=== PATIENT | female | born 1935 | race African-American/Black ===

== ENCOUNTER 2018-05-09 12:51 | Inpatient (IN) | payer MEDICARE, OTHER ==
[~2018-05-09] VITALS: Ht 157.5 cm; Wt 62.1 kg
[2018-05-09 13:35] VITALS: BP 127/69
[2018-05-09] MEDS ORDERED: Morphine Sulfate 2mg/ml Inj IVP ONE (14:30)
[2018-05-09] MEDS ORDERED: Isovue-370 150ml vial INJ PRN (14:30)
--- NOTE | 2018-05-09 14:31 | Emergency Room Report ---
History of Present Illness General Chief Complaint: Pain Source: Patient (Michael Nance MD) Present Illness HPI Patient is an 82-year-old female presented after increased chest pain. The patient ports have increased left-sided pain which is worse with deep breath. Patient reports having onset of symptoms approximately 1 day prior to arrival. The pain was constant in nature. It is worse with deep breath and movement. She denies recent trauma. Patient had prior history of lung cancer and less the treatment 2004. The patient was treated at [facility]. She denies any fever. She had not been vomiting. She denies any productive cough. She denies any current history of smoking however she been a smoker in the past. (Michael Nance MD) Allergies: Coded Allergies: PENICILLINS (Verified Allergy, Unknown, 05/09/18) Patient History Last Menstrual Period: na Reviewed Nursing Documentation: PMH: Agreed; PSxH: Agreed (Michael Nance MD) Nursing Documentation-PMH Past Medical History: No History, Except For Hx Hypertension: Yes Hx Gastrointestinal Problems: Yes - GERD Hx Neurological Problems: Yes - dizziness, chronic pain (Michael Nance MD) Review of Systems All Other Systems: negative except mentioned in HPI (Michael Nance MD) Physical Exam Vital Signs Date Time Temp Pulse Resp B/P (MAP) Pulse Ox O2 Delivery O2 Flow Rate FiO2 05/09/18 13:35 98.2 61 18 127/69 98 Room Air 98.2 Sp02 EP Interpretation: reviewed, normal General Appearance: normal inspection, well appearing, no apparent distress, alert, GCS 15 Head: atraumatic ENT: normal ENT inspection, hearing grossly normal, normal voice Neck: normal inspection, full range of motion, supple, no bony tend Respiratory: normal inspection, lungs clear, normal breath sounds, no respiratory distress, no retraction, no wheezing Cardiovascular #1: regular rate, rhythm, no edema Gastrointestinal: normal inspection, normal bowel sounds, non tender, soft, no guarding, no hernia Genitourinary: no CVA tenderness Musculoskeletal: normal inspection, back normal, normal range of motion Neurologic: normal inspection, alert, oriented x3, responsive, cellophane tester III-XII nml as tested, speech normal Psychiatric: normal inspection, judgement/insight normal, mood/affect normal Skin: normal inspection, normal color, no rash (Michael Nance MD) Medical Decision Making Diagnostic Impression: Primary Impression: ACS (acute coronary syndrome) ER Course Patient presented for chest pain.Differential diagnosis included but was not limited to acute coronary syndrome, pulmonary embolism, pneumonia, aortic dissection, shingles, pneumothorax, aortic dissection, esophageal rupture, pericarditis. Because of complexity of patient's case laboratory testing and imaging studies were ordered.CT imaging was ordered patient's prior history of cancer. (Michael Nance MD) ER Course Please refer to the initial note for the presentation and history Patient's blood work at this time are appropriate EKG did not show any acute pathology Patient however continued to complain of discomfort CT imaging was obtained no obvious acute pulmonary embolism however there was a nonspecific mass in the right upper lobe Patient given the continued discomfort will be admitted for further care Labs Test 05/09/18 14:20 White Blood Count 5.4 K/UL (4.8-10.8) Red Blood Count 4.51 M/UL (4.20-5.40) Hemoglobin 13.7 G/DL (12.0-16.0) Hematocrit 39.5 % (37.0-47.0) Mean Corpuscular Volume 88 FL (80-99) Mean Corpuscular Hemoglobin 30.3 PG (27.0-31.0) Mean Corpuscular Hemoglobin Concent 34.6 G/DL (32.0-36.0) Red Cell Distribution Width 11.8 % (11.6-14.8) Platelet Count 234 K/UL (150-450) Mean Platelet Volume 7.4 FL (6.5-10.1) Neutrophils (%) (Auto) 57.0 % (45.0-75.0) Lymphocytes (%) (Auto) 31.2 % (20.0-45.0) Monocytes (%) (Auto) 7.9 % (1.0-10.0) Eosinophils (%) (Auto) 1.7 % (0.0-3.0) Basophils (%) (Auto) 2.2 % (0.0-2.0) Prothrombin Time 10.7 SEC (9.30-11.50) Prothromb Time International Ratio 1.0 (0.9-1.1) Activated Partial Thromboplast Time 24 SEC (23-33) Sodium Level 139 MMOL/L (136-145) Potassium Level 3.9 MMOL/L (3.5-5.1) Chloride Level 102 MMOL/L (98-107) Carbon Dioxide Level 33 MMOL/L (21-32) Anion Gap 5 mmol/L (5-15) Blood Urea Nitrogen 15 mg/dL (7-18) Creatinine 0.7 MG/DL (0.55-1.30) Estimat Glomerular Filtration Rate mL/min (>60) Glucose Level 78 MG/DL (74-106) Calcium Level 9.6 MG/DL (8.5-10.1) Total Bilirubin 0.5 MG/DL (0.2-1.0) Aspartate Amino Transf (AST/SGOT) 21 U/L (15-37) Alanine Aminotransferase (ALT/SGPT) 13 U/L (12-78) Alkaline Phosphatase 72 U/L (46-116) Total Creatine Kinase 91 U/L (26-308) Creatine Kinase MB 0.5 NG/ML (0.0-3.6) Creatine Kinase MB Relative Index 0.5 Troponin I 0.000 ng/mL (0.000-0.056) Pro-B-Type Natriuretic Peptide 133 pg/mL (0-125) Total Protein 8.5 G/DL (6.4-8.2) Albumin 3.5 G/DL (3.4-5.0) Globulin 5.0 g/dL Albumin/Globulin Ratio 0.7 (1.0-2.7) (Jose Negro DO) EKG Diagnostic Results Rate: normal - 57 Rhythm: NSR ST Segments: no acute changes (Michael Nance MD) Rhythm Strip Diag. Results EP Interpretation: yes Rhythm: NSR, no PVC's, no ectopy (Michael Nance MD) EP Interpretation: yes Rate: 68 Rhythm: NSR, no PVC's, no ectopy (Jose Negro DO) CT/MRI/US Diagnostic Results CT/MRI/US Diagnostic Results : Impression CT chest no PE, right upper lobe mass (Jose Negro DO) Last Vital Signs Date Time Temp Pulse Resp B/P (MAP) Pulse Ox O2 Delivery O2 Flow Rate FiO2 05/09/18 13:35 97.8 67 18 127/69 98 Room Air 97.8 Status: unchanged (Michael Nance MD) Status: improved (Jose Negro DO) Disposition: ADMITTED INPATIENT Condition: Serious Referrals: NON PHYSICIAN (PCP) Michael Nance MD May 09, 2018 14:31 Jose Negro DO May 09, 2018 18:37
[2018-05-09 15:41] LABS: BASOPHILS % (AUTO) 2.2 % (0.0-2.0); EOSINOPHILS % (AUTO) 1.7 % (0.0-3.0); HEMATOCRIT 39.5 % (37.0-47.0); HEMOGLOBIN 13.7 G/DL (12.0-16.0); LYMPHOCYTES % (AUTO) 31.2 % (20.0-45.0); MEAN CORPUSCULAR VOLUME 88 FL (80-99); MONOCYTES % (AUTO) 7.9 % (1.0-10.0); PLATELET COUNT 234 K/UL (150-450); RED BLOOD COUNT 4.51 M/UL (4.20-5.40); RED CELL DISTRIBUTION WIDTH 11.8 % (11.6-14.8); WHITE BLOOD COUNT 5.4 K/UL (4.8-10.8)
[2018-05-09 15:48] LABS: ANION GAP 5 mmol/L (5-15); BLOOD UREA NITROGEN 15 mg/dL (7-18); CALCIUM 9.6 MG/DL (8.5-10.1); CARBON DIOXIDE 33 MMOL/L (21-32); CHLORIDE 102 MMOL/L (98-107); CREATININE 0.7 MG/DL (0.55-1.30); POTASSIUM 3.9 MMOL/L (3.5-5.1); SODIUM 139 MMOL/L (136-145)
[2018-05-09 15:52] VITALS: BP 142/60
[2018-05-09 16:04] LABS: ALANINE AMINOTRANSFERASE 13 U/L (12-78); ALBUMIN 3.5 G/DL (3.4-5.0); ALBUMIN/GLOBULIN RATIO 0.7 (1.0-2.7); ALKALINE PHOSPHATASE 72 U/L (46-116); ASPARTATE AMINO TRANSFERASE 21 U/L (15-37); BILIRUBIN,TOTAL 0.5 MG/DL (0.2-1.0); CKMB 0.5 NG/ML (0.0-3.6); CREATINE KINASE 91 U/L (26-308)
[2018-05-09] MEDS ORDERED: ZANTAC150 MG ORAL (17:25)
[2018-05-09] MEDS ORDERED: HYDROCHLOROTHIA25 MG ORAL (17:25)
[2018-05-09] MEDS ORDERED: METOPROLOL SUC100 MG ORAL (17:25)
[2018-05-09] MEDS ORDERED: OMEPRAZOLE20 M2 ORAL (17:25)
[2018-05-09] MEDS ORDERED: MECLIZINE HCL25 MG ORAL (17:25)
[2018-05-09] MEDS ORDERED: PYRIDOXINE HCL100 MG PO (17:25)
[2018-05-09] MEDS ORDERED: AMLODIPINE BESYL5 MG ORAL (17:25)
[2018-05-09] MEDS ORDERED: GABAPENTIN100 MG ORAL (17:25)
[2018-05-09] MEDS ORDERED: NAPROXEN500 M2 ORAL (17:25)
[2018-05-09] MEDS ORDERED: KLOR-CON M2020 MEQ ORAL (17:25)
[2018-05-09 17:43] VITALS: BP 150/63
--- NOTE | 2018-05-09 17:49 | Consultation ---
Consult Note Consult Note DICT # [id number] Richy Liu MD May 09, 2018 17:49
[2018-05-09] MEDS ORDERED: Nitroglycerin Subl 0.4mg tab SL PRN (18:45)
[2018-05-09] MEDS ORDERED: Morphine Sulfate 2mg/ml Inj IVP PRN (18:45)
[2018-05-09 20:00] VITALS: BP 120/72
--- NOTE | 2018-05-09 20:37 | History and Physical ---
History of Present Illness General Date patient seen: May 09, 2018 Time patient seen: 22:35 Reason for Hospitalization: Pain Present Illness HPI 82 yo woman presented to ED with increased chest pain. She reports increased left-sided pain over the last day which is worse with deep breathing. The pain was constant in nature. It is worse with deep breath and movement. She denies recent trauma. Patient had prior history of lung cancer and less the treatment 2004. The patient was treated at [facility]. She denies any fever. She had not been vomiting. She denies any productive cough. She denies any current history of smoking however she been a smoker in the past. in the ED patient got a CT scan which was negative for PE PMHX; Lung cancer, HTN FHx: Reviewed; not pertinent for this encounter SHx: Previous tobacco No EtOH Allergies: Coded Allergies: PENICILLINS (Verified Allergy, Unknown, 05/09/18) Medication History Scheduled Amlodipine Besylate* (Amlodipine Besylate*), 5 MG ORAL DAILY, (Reported) Gabapentin* (Gabapentin*), 100 MG ORAL THREE TIMES A DAY, (Reported) Hydrochlorothiazide* (Hydrochlorothiazide*), 25 MG ORAL DAILY, (Reported) Metoprolol Succinate* (Metoprolol Succinate*), 100 MG ORAL DAILY, (Reported) Omeprazole (Omeprazole), 20 MG ORAL DAILY, (Reported) Pyridoxine Hcl (Pyridoxine Hcl), 100 MG PO DAILY, (Reported) Scheduled PRN Meclizine Hcl* (Meclizine*), 25 MG ORAL THREE TIMES A DAY PRN for for dizziness, (Reported) Naproxen* (Naproxen*), 500 MG ORAL TWICE A WEEK PRN for For Pain, (Reported) Ranitidine Hcl* (Zantac*), 150 MG ORAL TWICE A DAY PRN for GAS, (Reported) Discontinued Medications Potassium Chloride (Klor-Con M20), 20 MEQ ORAL DAILY, (Reported) Discontinued Reason: Therapy completed Patient History Limited by: age History Provided By: Patient, Medical Record, EMS Healthcare decision maker Resuscitation status Advanced Directive on File Review of Systems Constitutional: Reports: malaise, weakness Eye: Reports: no symptoms ENT: Reports: no symptoms Respiratory: Reports: no symptoms Cardiovascular: Reports: chest pain Gastrointestinal: Reports: no symptoms Genitourinary: Reports: no symptoms Musculoskeletal: Reports: no symptoms Skin: Reports: no symptoms Psychiatric: Reports: no symptoms Neurological: Reports: no symptoms Endocrine: Reports: no symptoms All Other Systems: negative except mentioned in HPI Physical Exam General Appearance: mild distress, thin Lines, tubes and drains: peripheral HEENT: normocephalic, atraumatic Neck: non-tender, supple Respiratory/Chest: chest wall non-tender, decreased breath sounds Cardiovascular/Chest: normal peripheral pulses, normal rate, regular rhythm Abdomen: normal bowel sounds, non tender, soft Extremities: normal range of motion Skin Exam: normal pigmentation 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 Lymphatic: anterior cervical Musculoskeletal: atrophy Last 24 Hour Vital Signs Date Time Temp Pulse Resp B/P (MAP) Pulse Ox O2 Delivery O2 Flow Rate FiO2 05/09/18 18:06 98.5 58 18 150/63 100 Room Air 98.5 05/09/18 17:43 98.5 58 18 150/63 100 Room Air 98.5 05/09/18 16:14 98.5 05/09/18 15:52 98.7 56 19 142/60 100 Room Air 98.7 05/09/18 15:44 97.8 05/09/18 13:35 97.8 67 18 127/69 98 Room Air 97.8 05/09/18 13:35 98.2 61 18 127/69 98 Room Air 98.2 Laboratory Tests Test 05/09/18 14:20 05/09/18 14:30 White Blood Count 5.4 K/UL (4.8-10.8) Red Blood Count 4.51 M/UL (4.20-5.40) Hemoglobin 13.7 G/DL (12.0-16.0) Hematocrit 39.5 % (37.0-47.0) Mean Corpuscular Volume 88 FL (80-99) Mean Corpuscular Hemoglobin 30.3 PG (27.0-31.0) Mean Corpuscular Hemoglobin Concent 34.6 G/DL (32.0-36.0) Red Cell Distribution Width 11.8 % (11.6-14.8) Platelet Count 234 K/UL (150-450) Mean Platelet Volume 7.4 FL (6.5-10.1) Neutrophils (%) (Auto) 57.0 % (45.0-75.0) Lymphocytes (%) (Auto) 31.2 % (20.0-45.0) Monocytes (%) (Auto) 7.9 % (1.0-10.0) Eosinophils (%) (Auto) 1.7 % (0.0-3.0) Basophils (%) (Auto) 2.2 % (0.0-2.0) H Prothrombin Time 10.7 SEC (9.30-11.50) Prothromb Time International Ratio 1.0 (0.9-1.1) Activated Partial Thromboplast Time 24 SEC (23-33) Sodium Level 139 MMOL/L (136-145) Potassium Level 3.9 MMOL/L (3.5-5.1) Chloride Level 102 MMOL/L (98-107) Carbon Dioxide Level 33 MMOL/L (21-32) H Anion Gap 5 mmol/L (5-15) Blood Urea Nitrogen 15 mg/dL (7-18) Creatinine 0.7 MG/DL (0.55-1.30) Estimat Glomerular Filtration Rate mL/min (>60) Glucose Level 78 MG/DL (74-106) Calcium Level 9.6 MG/DL (8.5-10.1) Total Bilirubin 0.5 MG/DL (0.2-1.0) Aspartate Amino Transf (AST/SGOT) 21 U/L (15-37) Alanine Aminotransferase (ALT/SGPT) 13 U/L (12-78) Alkaline Phosphatase 72 U/L (46-116) Total Creatine Kinase 91 U/L (26-308) Creatine Kinase MB 0.5 NG/ML (0.0-3.6) Creatine Kinase MB Relative Index 0.5 Troponin I 0.000 ng/mL (0.000-0.056) Pro-B-Type Natriuretic Peptide 133 pg/mL (0-125) H Total Protein 8.5 G/DL (6.4-8.2) H Albumin 3.5 G/DL (3.4-5.0) Globulin 5.0 g/dL Albumin/Globulin Ratio 0.7 (1.0-2.7) L Hemoglobin A1c 5.9 % (4.3-6.0) Thyroid Stimulating Hormone (TSH) 0.773 uiU/mL (0.358-3.740) Height (Feet): 5 Height (Inches): 2.00 Weight (Pounds): 137 Medications Current Medications Medications (Trade) Dose Ordered Sig/Jayde Route PRN Reason Start Time Stop Time Status Last Admin Dose Admin Acetaminophen (Tylenol) 650 mg Q4H PRN ORAL Mild Pain/Temp > 100.5 05/09/18 18:45 06/08/18 18:44 Acetaminophen/ Hydrocodone Bitart ([place] 5/325) 1 tab Q4H PRN ORAL Moderate Pain (Pain Scale 4-6) 05/09/18 18:45 05/16/18 18:44 Aspirin (ASA) 81 mg DAILY ORAL 05/10/18 09:00 06/09/18 08:59 Atorvastatin Calcium (Lipitor) 20 mg BEDTIME ORAL 05/09/18 21:00 06/08/18 20:59 Diphenhydramine HCl (Benadryl) 25 mg Q4H PRN ORAL Itching 05/09/18 18:45 06/08/18 18:44 Heparin Sodium (Porcine) (Heparin 5000 units/ml) 5,000 units EVERY 12 HOURS SUBQ 05/09/18 21:00 06/08/18 20:59 Ibuprofen (Advil) 400 mg Q6H PRN ORAL For Pain 05/09/18 18:45 06/08/18 18:44 Iopamidol (Isovue-370 150ml) 150 ml NOW PRN INJ Radiology Procedure 05/09/18 14:30 05/11/18 14:20 Morphine Sulfate (Morphine Sulfate) 1 mg Q4H PRN IVP For Pain 05/09/18 18:45 05/16/18 18:44 Nitroglycerin (Ntg) 0.4 mg Q5M PRN SL Prn Chest Pain 05/09/18 18:45 06/08/18 18:44 Ondansetron HCl (Zofran) 4 mg Q4H PRN IVP Nausea & Vomiting 05/09/18 18:45 06/08/18 18:44 Assessment/Plan Status: not improved Status Narrative 82 yo woman with h/o lung cancer s/p treatment with chest pain Assessment/Plan #Chest pain, atypical -Admit to telemetry -Serial EKG's/troponins -Cardiology consult -check TTE #HTN -uncontrolled -continue home meds -add Hydralazine as needed #Lung cancer -s/p treatment; in remission -nodule/mass on preliminary read of CT -Pulmonary consult -f/u official read CT DVT Prophylaxis: SCD's Code Status: Full Hospital Classification declaration: Based on this initial evaluation and depending on the patient's clinical course I anticipate that this patient will require hospitalization for at least 2-3 days Disposition: Once the patient is stable to leave the hospital I anticipate the patient will likely be discharged to the following environment: SNF vs home with HH I spent 70 minutes on this patients care and 36 minutes was dedicated to counseling and care coordination Time of note may not reflect time of encounter Torres Newberry MD May 09, 2018 20:28
[2018-05-09] MEDS: Atorvastatin 20mg tab ORAL SCH (21:00)
[2018-05-09] MEDS: Heparin 5000 units/ml inj SUBQ SCH (21:01)
[2018-05-09] MEDS: Norco 5mg/325mg tab ORAL PRN (22:03)
[2018-05-10] VITALS: BP 111/61
--- NOTE | 2018-05-10 00:45 | Consultation ---
DATE OF CONSULTATION: 05/09/2018 PULMONARY CONSULTATION CONSULTING PHYSICIAN: Richy Liu M.D. REFERRING PHYSICIAN: Carmen Interiano M.D. REASON FOR CONSULTATION: Chest pain, shortness of breath, and history of lung cancer. HISTORY OF PRESENT ILLNESS: The patient is an 82-year-old former smoker with a history of non-small cell lung cancer, status post lobe resection (she is unsure which lobe) via thoracotomy in 2004, as well as hypertension, presenting with 1 day of left-sided posterior chest pain. The pain is sharp, worse with activity with a maximal intensity of 4/10. No radiation. No numbness or tingling. She was afebrile with stable vital signs upon presentation to the emergency department and had a CTA done to rule out PE, which was negative per report, but the official CT is not available for my review. Per the ER attendings, verbal report was negative. The pain is nonexertional. No shortness of breath. No dyspnea. No cough, wheezing, or hemoptysis. No weight loss. It is worse with touch and movement. She denies any recent trauma or injury. Denies any recent increased strenuous activity. Her last negative stress echocardiogram was 1 year ago per the patient and she states it was normal. PAST MEDICAL HISTORY: 1. Hypertension. 2. Non-small cell lung cancer, status post lobe resection and 6 months of chemotherapy in 2004, she is unsure of which lobe it was or the final pathology. PAST SURGICAL HISTORY: Thoracotomy. MEDICATIONS: Onzyi-lj-uzdfkravz medications reviewed. Current medications reviewed. ALLERGIES: Penicillin. SOCIAL HISTORY: Prior tobacco use, quit in 2004. No drug or alcohol. FAMILY HISTORY: Noncontributory. REVIEW OF SYSTEMS: Negative other than history of present illness. PHYSICAL EXAMINATION: VITAL SIGNS: Temperature 98.2, pulse 61, blood pressure 127/69, respiratory rate 18, and saturating 98% on room air. GENERAL: This is a well-developed, well-nourished female in no acute distress. Awake, alert, and oriented x3. HEENT: Normocephalic and atraumatic. Oropharynx with moist mucous membranes. NECK: Supple without lymphadenopathy or jugular venous distention. CHEST: Clear to auscultation bilaterally. Tenderness along the right paravertebral muscles with some spasm. No point tenderness or deformity. No effusion or edema. HEART: Regular rate and rhythm. ABDOMEN: Soft, nontender, and nondistended. EXTREMITIES: No cyanosis, clubbing, or edema. ANCILLARY DATA: White count 5.4, hemoglobin 13.7, and platelet count 234,000. INR 1. Sodium 139, potassium 3.9, chloride 102, bicarb 33, BUN 15, creatinine 0.7, glucose 78, and calcium 9.6. Total bilirubin 0.5. AST 21, ALT 13, and alkaline phosphatase 72. CK 91. Troponin 0.000. ProBNP 133. Total protein 8.5. Albumin 3.5. Globulin 5. IMAGING: Chest x-ray unavailable for my review, but CT angio done and per report, negative for PE. I have to review the final images myself. ASSESSMENT: The patient is an 82-year-old female, former smoker with a history of lung cancer, status post lobe resection in 2004 and 6 months of chemotherapy, hypertension, presenting with atypical chest pain consistent with likely musculoskeletal origin or spasm. She had one negative troponin and has been ruled out for PE. She will be admitted to rule out ACS. I am awaiting the final CT report for further comments. PROBLEM LIST: 1. Atypical chest pain status post negative troponin and a CT angio without evidence of PE in the ER. 2. History of lung cancer, presumably non-small cell lung cancer, status post resection via thoracotomy, lobe unknown, and 6 months of chemotherapy in 2004, presumed to be in clinical remission. 3. Hypertension. 4. Former smoker. TREATMENT PLAN: 1. Admit to telemetry. 2. Rule out ACS with serial EKG and troponin. 3. Await final CT chest. 4. P.r.n. nitroglycerin. 5. Aspirin, statin. 6. Follow up lipids in a.m., follow up hemoglobin A1c. 7. Cardiology consultation pending. 8. P.r.n. NSAIDs. 9. Physical therapy. 10. DVT prophylaxis with heparin subcutaneous. 11. Continue to encourage abstinence from tobacco use. Dr. Interiano, thank you for allowing me to assist in the care of your patient. If I may be of any assistance in the future, please do not hesitate to ask. Richy Liu M.D. DR: JARRETT JOB#: [id number] CC:
[2018-05-10 03:33] LABS: BASOPHILS % (AUTO) 3.1 % (0.0-2.0); EOSINOPHILS % (AUTO) 2.8 % (0.0-3.0); HEMATOCRIT 40.9 % (37.0-47.0); HEMOGLOBIN 13.5 G/DL (12.0-16.0); LYMPHOCYTES % (AUTO) 28.6 % (20.0-45.0); MEAN CORPUSCULAR VOLUME 86 FL (80-99); MONOCYTES % (AUTO) 10.6 % (1.0-10.0); NEUTROPHILS % (AUTO) 54.9 % (45.0-75.0); PLATELET COUNT 233 K/UL (150-450); RED BLOOD COUNT 4.75 M/UL (4.20-5.40); RED CELL DISTRIBUTION WIDTH 11.5 % (11.6-14.8); WHITE BLOOD COUNT 4.8 K/UL (4.8-10.8)
[2018-05-10 03:37] LABS: ANION GAP 3 mmol/L (5-15); BLOOD UREA NITROGEN 14 mg/dL (7-18); CALCIUM 9.4 MG/DL (8.5-10.1); CARBON DIOXIDE 32 MMOL/L (21-32); CHLORIDE 103 MMOL/L (98-107); CREATININE 0.7 MG/DL (0.55-1.30); POTASSIUM 3.1 MMOL/L (3.5-5.1); SODIUM 138 MMOL/L (136-145)
[2018-05-10 03:48] LABS: CHOLESTEROL 181 MG/DL (< 200); HDL CHOLESTEROL 53 MG/DL (40-60); TRIGLYCERIDES 100 MG/DL (30-150)
[2018-05-10 04:00] VITALS: BP 109/58
[2018-05-10 08:00] VITALS: BP 100/55
--- NOTE | 2018-05-10 08:59 | Pulmonology Progress Note ---
Assessment/Plan Assessment/Plan ASSESSMENT: The patient is an 83-year-old male with a [facility] resident with a history of chronic obstructive pulmonary disease, congestive heart failure, chronic kidney disease, dementia, prior cerebrovascular accident, and chronic atrial fibrillation, presenting with shortness of breath likely secondary to decompensated heart failure. He is also on Zosyn for possible aspiration and healthcare-associated pneumonia. PROBLEM LIST: 1. Acute hypoxemic respiratory failure likely secondary to decompensated heart failure. 2. Bibasilar opacities, likely edema, possible aspiration. 3. Chronic obstructive pulmonary disease. 4. Congestive heart failure with acute decompensated heart failure. 5. Chronic atrial fibrillation. 6. Dementia. 7. Prior cerebrovascular accident. 8. Chronic kidney disease. 9. 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 TREATMENT PLAN: 1. Optimize pulmonary hygiene/mobilize as tolerated. 2. Titrate on FiO2 to keep saturations greater than 90%. 3. Pyved-jcu-tznym and p.r.n. DuoNebs. 4. Continue b.i.d. budesonide. 5. Continue Zosyn per ID. 6. Monitor volumes and renal function, continue diuresis as tolerated. 7. Aspiration precautions. 8. Swallow evaluation. 9. DVT PROPHYLAXIS: The patient is on anticoagulation. 10. The patient is Full Code, continue to discuss goals of care. Subjective Allergies: Coded Allergies: PENICILLINS (Verified Allergy, Unknown, 05/09/18) Subjective AFVSS x SB No SOB, no CP, no N, no V, no SOB Objective Last 24 Hour Vital Signs Date Time Temp Pulse Resp B/P (MAP) Pulse Ox O2 Delivery O2 Flow Rate FiO2 05/10/18 04:05 53 05/10/18 04:00 98.9 52 18 109/58 (75) 95 98.9 05/10/18 00:00 98.4 56 18 111/61 (78) 95 98.4 05/09/18 23:34 56 05/09/18 21:33 Room Air 05/09/18 20:00 97.2 59 18 120/72 (88) 99 97.2 05/09/18 19:06 55 05/09/18 18:06 98.5 58 18 150/63 100 Room Air 98.5 05/09/18 17:43 98.5 58 18 150/63 100 Room Air 98.5 9/9/18 16:14 98.5 05/09/18 15:52 98.7 56 19 142/60 100 Room Air 98.7 05/09/18 15:44 97.8 05/09/18 13:35 97.8 67 18 127/69 98 Room Air 97.8 05/09/18 13:35 98.2 61 18 127/69 98 Room Air 98.2 Intake and Output 05/09/18 05/10/18 19:00 07:00 Intake Total 240 ml Output Total 0 ml Balance 0 ml 240 ml Intake Oral 240 ml Output Urine Total 0 ml # Voids 4 General Appearance: WD/WN, no acute distress HEENT: normocephalic, atraumatic, anicteric, mucous membranes moist Respiratory/Chest: chest wall non-tender, lungs clear, normal breath sounds, no respiratory distress Cardiovascular: normal peripheral pulses, regular rhythm, bradycardia Abdomen: normal bowel sounds, soft, non tender, no organomegaly, non distended , no mass Extremities: no cyanosis, no clubbing, no edema Laboratory Tests 05/09/18 14:20: White Blood Count 5.4, Red Blood Count 4.51, Hemoglobin 13.7, Hematocrit 39.5, Mean Corpuscular Volume 88, Mean Corpuscular Hemoglobin 30.3, Mean Corpuscular Hemoglobin Concent 34.6, Red Cell Distribution Width 11.8, Platelet Count 234, Mean Platelet Volume 7.4, Neutrophils (%) (Auto) 57.0, Lymphocytes (%) (Auto) 31.2, Monocytes (%) (Auto) 7.9, Eosinophils (%) (Auto) 1.7, Basophils (%) (Auto ) 2.2H, Prothrombin Time 10.7, Prothromb Time International Ratio 1.0, Activated Partial Thromboplast Time 24, Sodium Level 139, Potassium Level 3.9, Chloride Level 102, Carbon Dioxide Level 33H, Anion Gap 5, Blood Urea Nitrogen 15, Creatinine 0.7, Estimat Glomerular Filtration Rate , Glucose Level 78, Calcium Level 9.6, Total Bilirubin 0.5, Aspartate Amino Transf (AST/SGOT) 21, Alanine Aminotransferase (ALT/SGPT) 13, Alkaline Phosphatase 72, Total Creatine Kinase 91, Creatine Kinase MB 0.5, Creatine Kinase MB Relative Index 0.5, Troponin I 0.000, Pro-B-Type Natriuretic Peptide 133H, Total Protein 8.5H, Albumin 3.5, Globulin 5.0, Albumin/Globulin Ratio 0.7L 05/09/18 14:30: Hemoglobin A1c 5.9, Thyroid Stimulating Hormone (TSH) 0.773 05/09/18 21:55: Troponin I 0.000, D-Dimer 1.35H 05/10/18 03:15: White Blood Count 4.8, Red Blood Count 4.75, Hemoglobin 13.5, Hematocrit 40.9, Mean Corpuscular Volume 86, Mean Corpuscular Hemoglobin 28.4, Mean Corpuscular Hemoglobin Concent 33.0, Red Cell Distribution Width 11.5L, Platelet Count 233, Mean Platelet Volume 7.1, Neutrophils (%) (Auto) 54.9, Lymphocytes (%) (Auto) 28.6, Monocytes (%) (Auto) 10.6H, Eosinophils (%) (Auto) 2.8, Basophils (%) ( Auto) 3.1H, Sodium Level 138, Potassium Level 3.1L, Chloride Level 103, Carbon Dioxide Level 32, Anion Gap 3L, Blood Urea Nitrogen 14, Creatinine 0.7, Estimat Glomerular Filtration Rate , Glucose Level 99, Calcium Level 9.4, Troponin I 0.000, Pro-B-Type Natriuretic Peptide 152H, Triglycerides Level 100, Cholesterol Level 181, LDL Cholesterol 106H, HDL Cholesterol 53, Cholesterol/ HDL Ratio 3.4 Current Medications Medications (Trade) Dose Ordered Sig/Jayde Route PRN Reason Start Time Stop Time Status Last Admin Dose Admin Acetaminophen (Tylenol) 650 mg Q4H PRN ORAL Mild Pain/Temp > 100.5 05/09/18 18:45 06/08/18 18:44 Acetaminophen/ Hydrocodone Bitart ([place] 5/325) 1 tab Q4H PRN ORAL Moderate Pain (Pain Scale 4-6) 05/09/18 18:45 05/16/18 18:44 05/09/18 22:03 Aspirin (ASA) 81 mg DAILY ORAL 05/10/18 09:00 06/09/18 08:59 Atorvastatin Calcium (Lipitor) 20 mg BEDTIME ORAL 05/09/18 21:00 06/08/18 20:59 05/09/18 21:00 Diphenhydramine HCl (Benadryl) 25 mg Q4H PRN ORAL Itching 05/09/18 18:45 06/08/18 18:44 Heparin Sodium (Porcine) (Heparin 5000 units/ml) 5,000 units EVERY 12 HOURS SUBQ 05/09/18 21:00 06/08/18 20:59 05/09/18 21:01 Ibuprofen (Advil) 400 mg Q6H PRN ORAL For Pain 05/09/18 18:45 06/08/18 18:44 Iopamidol (Isovue-370 150ml) 150 ml NOW PRN INJ Radiology Procedure 05/09/18 14:30 05/11/18 14:20 Morphine Sulfate (Morphine Sulfate) 1 mg Q4H PRN IVP For Pain 05/09/18 18:45 05/16/18 18:44 Nitroglycerin (Ntg) 0.4 mg Q5M PRN SL Prn Chest Pain 05/09/18 18:45 06/08/18 18:44 Ondansetron HCl (Zofran) 4 mg Q4H PRN IVP Nausea & Vomiting 05/09/18 18:45 06/08/18 18:44 05/10/18 08:05 Potassium Chloride (K-Dur) 40 meq ONCE ORAL 05/10/18 08:43 05/10/18 09:43 Richy Liu MD May 10, 2018 08:59
--- NOTE | 2018-05-10 09:03 | Pulmonology Progress Note ---
Assessment/Plan Assessment/Plan ASSESSMENT: The patient is an 82-year-old female, former smoker with a history of lung cancer, status post lobe resection in 2004 and 6 months of chemotherapy, hypertension, presenting with atypical chest pain consistent with likely musculoskeletal origin or spasm. She had one negative troponin and has been ruled out for PE. She will be admitted to rule out ACS. I am awaiting the final CT report for further comments. PROBLEM LIST: 1. Atypical chest pain status post negative troponin and a CT angio without evidence of PE in the ER. 2. History of lung cancer, presumably non-small cell lung cancer, status post resection via thoracotomy, lobe unknown, and 6 months of chemotherapy in 2004, presumed to be in clinical remission. 3. Hypertension. 4. Former smoker. TREATMENT PLAN: 1. Continue tele 2. F/U final CT chest 3. Cardiology evaluation 4. P.r.n. nitroglycerin. 5. Aspirin, statin. 6. TTE 7. P.r.n. NSAIDs. 8. Physical therapy. 9. DVT prophylaxis with heparin subcutaneous. 10. Continue to encourage abstinence from tobacco use. Subjective Allergies: Coded Allergies: PENICILLINS (Verified Allergy, Unknown, 05/09/18) Subjective AFVSS x SB No SOB, no CP, no N, no V, no SOB Objective Last 24 Hour Vital Signs Date Time Temp Pulse Resp B/P (MAP) Pulse Ox O2 Delivery O2 Flow Rate FiO2 05/10/18 04:05 53 05/10/18 04:00 98.9 52 18 109/58 (75) 95 98.9 05/10/18 00:00 98.4 56 18 111/61 (78) 95 98.4 05/09/18 23:34 56 05/09/18 21:33 Room Air 05/09/18 20:00 97.2 59 18 120/72 (88) 99 97.2 05/09/18 19:06 55 05/09/18 18:06 98.5 58 18 150/63 100 Room Air 98.5 05/09/18 17:43 98.5 58 18 150/63 100 Room Air 98.5 05/09/18 16:14 98.5 05/09/18 15:52 98.7 56 19 142/60 100 Room Air 98.7 05/09/18 15:44 97.8 05/09/18 13:35 97.8 67 18 127/69 98 Room Air 97.8 05/09/18 13:35 98.2 61 18 127/69 98 Room Air 98.2 Intake and Output 05/09/18 05/10/18 19:00 07:00 Intake Total 240 ml Output Total 0 ml Balance 0 ml 240 ml Intake Oral 240 ml Output Urine Total 0 ml # Voids 4 Laboratory Tests 05/09/18 14:20: White Blood Count 5.4, Red Blood Count 4.51, Hemoglobin 13.7, Hematocrit 39.5, Mean Corpuscular Volume 88, Mean Corpuscular Hemoglobin 30.3, Mean Corpuscular Hemoglobin Concent 34.6, Red Cell Distribution Width 11.8, Platelet Count 234, Mean Platelet Volume 7.4, Neutrophils (%) (Auto) 57.0, Lymphocytes (%) (Auto) 31.2, Monocytes (%) (Auto) 7.9, Eosinophils (%) (Auto) 1.7, Basophils (%) (Auto ) 2.2H, Prothrombin Time 10.7, Prothromb Time International Ratio 1.0, Activated Partial Thromboplast Time 24, Sodium Level 139, Potassium Level 3.9, Chloride Level 102, Carbon Dioxide Level 33H, Anion Gap 5, Blood Urea Nitrogen 15, Creatinine 0.7, Estimat Glomerular Filtration Rate , Glucose Level 78, Calcium Level 9.6, Total Bilirubin 0.5, Aspartate Amino Transf (AST/SGOT) 21, Alanine Aminotransferase (ALT/SGPT) 13, Alkaline Phosphatase 72, Total Creatine Kinase 91, Creatine Kinase MB 0.5, Creatine Kinase MB Relative Index 0.5, Troponin I 0.000, Pro-B-Type Natriuretic Peptide 133H, Total Protein 8.5H, Albumin 3.5, Globulin 5.0, Albumin/Globulin Ratio 0.7L 05/09/18 14:30: Hemoglobin A1c 5.9, Thyroid Stimulating Hormone (TSH) 0.773 05/09/18 21:55: Troponin I 0.000, D-Dimer 1.35H 05/10/18 03:15: White Blood Count 4.8, Red Blood Count 4.75, Hemoglobin 13.5, Hematocrit 40.9, Mean Corpuscular Volume 86, Mean Corpuscular Hemoglobin 28.4, Mean Corpuscular Hemoglobin Concent 33.0, Red Cell Distribution Width 11.5L, Platelet Count 233, Mean Platelet Volume 7.1, Neutrophils (%) (Auto) 54.9, Lymphocytes (%) (Auto) 28.6, Monocytes (%) (Auto) 10.6H, Eosinophils (%) (Auto) 2.8, Basophils (%) ( Auto) 3.1H, Sodium Level 138, Potassium Level 3.1L, Chloride Level 103, Carbon Dioxide Level 32, Anion Gap 3L, Blood Urea Nitrogen 14, Creatinine 0.7, Estimat Glomerular Filtration Rate , Glucose Level 99, Calcium Level 9.4, Troponin I 0.000, Pro-B-Type Natriuretic Peptide 152H, Triglycerides Level 100, Cholesterol Level 181, LDL Cholesterol 106H, HDL Cholesterol 53, Cholesterol/ HDL Ratio 3.4 Current Medications Medications (Trade) Dose Ordered Sig/Jayde Route PRN Reason Start Time Stop Time Status Last Admin Dose Admin Acetaminophen (Tylenol) 650 mg Q4H PRN ORAL Mild Pain/Temp > 100.5 05/09/18 18:45 06/08/18 18:44 Acetaminophen/ Hydrocodone Bitart ([place] 5/325) 1 tab Q4H PRN ORAL Moderate Pain (Pain Scale 4-6) 05/09/18 18:45 05/16/18 18:44 05/09/18 22:03 Aspirin (ASA) 81 mg DAILY ORAL 05/10/18 09:00 06/09/18 08:59 Atorvastatin Calcium (Lipitor) 20 mg BEDTIME ORAL 05/09/18 21:00 06/08/18 20:59 05/09/18 21:00 Diphenhydramine HCl (Benadryl) 25 mg Q4H PRN ORAL Itching 05/09/18 18:45 06/08/18 18:44 Heparin Sodium (Porcine) (Heparin 5000 units/ml) 5,000 units EVERY 12 HOURS SUBQ 05/09/18 21:00 06/08/18 20:59 05/09/18 21:01 Ibuprofen (Advil) 400 mg Q6H PRN ORAL For Pain 05/09/18 18:45 06/08/18 18:44 Iopamidol (Isovue-370 150ml) 150 ml NOW PRN INJ Radiology Procedure 05/09/18 14:30 05/11/18 14:20 Morphine Sulfate (Morphine Sulfate) 1 mg Q4H PRN IVP For Pain 05/09/18 18:45 05/16/18 18:44 Nitroglycerin (Ntg) 0.4 mg Q5M PRN SL Prn Chest Pain 05/09/18 18:45 06/08/18 18:44 Ondansetron HCl (Zofran) 4 mg Q4H PRN IVP Nausea & Vomiting 05/09/18 18:45 06/08/18 18:44 05/10/18 08:05 Potassium Chloride (K-Dur) 40 meq ONCE ORAL 05/10/18 08:43 05/10/18 09:43 Richy Liu MD May 10, 2018 09:03
[2018-05-10] MEDS: Aspirin Baby 81mg ORAL SCH (09:08)
[2018-05-10] MEDS: Heparin 5000 units/ml inj SUBQ SCH ×2 (09:09→21:05)
--- NOTE | 2018-05-10 09:30 | Diagnostic Imaging Report ---
ndication: Chest pain Technique: IV administration nonionic contrast. Spiral acquisitions obtained from the lung bases to the lung apices. Multiplanar and 3-D reconstructions were generated. Total dose length product 729.66 mGycm. CTDIvol(s) 22.41 mGy. Dose reduction achieved using automated exposure control Comparison: none Findings: No intraluminal filling defects or other findings to suggest acute pulmonary embolus are demonstrated. Normal caliber patent great neck vessels with classic branching anatomy. No evidence of thoracic aortic aneurysm or dissection. No evidence of pulmonary artery dilatation or right ventricular dilatation. The proximal abdominal visceral vessels are patent and nonstenotic There is a peripheral mass in the right upper lobe which measures 2.7 x 2.5 x 2.1 cm. There is considerable scarring in the right upper lobe. There is also medial scarring in the left upper lobe as well as scarring at both lung bases. Posterior medial scarring in the left lower lobe appears somewhat masslike, with an area measuring 1.1 x 1.3 x 0.6 cm, although this is most likely an area of scarring. There is mild bilateral upper lobe hyperinflation as well as architectural distortion in the right upper lobe. No infiltrates, effusions, or congestion demonstrated. Prominent node is seen in the right pulmonary hilum. No mediastinal mass or adenopathy. Subcentimeter nodules are seen within the thyroid. No axillary or chest wall mass or adenopathy. There are median sternotomy sutures. There are cholecystectomy clips noted on the analyst programmer image The included upper abdominal viscera demonstrate possible mild left hydronephrosis, incompletely visualized. Impression: Negative for evidence of acute pulmonary embolus or other acute thoracic vascular pathology 2.7 x 2.5 x 2.1 cm peripheral right upper lobe mass, worrisome for neoplasm Prominent node in the right pulmonary hilum, nonspecific but raising concern for hilar metastasis 1.1 x 1.3 x 0.6 cm opacity in the left lower lobe, probably an area of scarring but mass is not completely excludable as well Fairly extensive scarring and evidence of COPD changes elsewhere Subcentimeter thyroid nodules. No further follow-up necessary Evidence of prior median sternotomy and cholecystectomy This agrees with the preliminary interpretation provided overnight by [facility] teleradiology service. The CT scanner at [facility] is accredited by the [employer] and the scans are performed using protocols designed to limit radiation exposure to as low as reasonably achievable to attain images of sufficient resolution adequate for diagnostic evaluation.
[2018-05-10] MEDS: Miralax 17gm pkt ORAL PRN (10:15)
--- NOTE | 2018-05-10 11:09 | General Progress Note ---
Assessment/Plan Status: progressing Status Narrative 82 yo woman with h/o lung cancer s/p treatment with chest pain, left sided, atypical in nature Assessment/Plan #Chest pain, atypical -Continue cardiac monitoring- no events overnight- reviewed by me -Serial EKG's/troponins- negative so far -Cardiology consulted- f/u recs -ASA, nitrates, statin -f/u lipid panel, A1c -check TTE #Lung cancer -s/p treatment; in remission -nodule/mass on preliminary read of CT -Pulmonary consult -f/u official read CT #HTN -BP controlled here -on no meds -continue to monitor #anemia -unclear etiology -Hematology recs appreciated -check irons studies, TSH DVT Prophylaxis: scd's, heparin Code status: full Hospital Classification declaration: Based on this initial evaluation, and depending on the patient's clinical course, I anticipate that this patient will require hospitalization for 2-3 days. Disposition: Once the patient is stable to leave the hospital, I anticipate the patient will likely be discharged to the following environment:Home with HH I spent 45 minutes on this patient's case, and 23 minutes was dedicated to counseling and/or care coordination. Time of note may not reflect time of encounter. Subjective Date patient seen: May 10, 2018 Time patient seen: 11:15 Constitutional: Reports: no symptoms HEENT: Reports: no symptoms Cardiovascular: Reports: chest pain Respiratory: Reports: cough Gastrointestinal/Abdominal: Reports: no symptoms Genitourinary: Reports: no symptoms Neurologic/Psychiatric: Reports: no symptoms Endocrine: Reports: no symptoms Hematologic/Lymphatic: Reports: no symptoms Allergies: Coded Allergies: PENICILLINS (Verified Allergy, Unknown, 05/09/18) All Systems: reviewed and negative except above Subjective Events of overnight noted Chart reviewed by me Patient with improved left sided chest pain Pain is sharp, worse with inspiration and movement located underneath left rib cage in mid axillary line No real shortness of breath although chest pain with deep inspiration limits breathing a bit No fevers, cough Objective Last 24 Hour Vital Signs Date Time Temp Pulse Resp B/P (MAP) Pulse Ox O2 Delivery O2 Flow Rate FiO2 05/10/18 09:00 Room Air 05/10/18 08:00 97.5 63 18 100/55 (70) 97 97.5 05/10/18 08:00 58 05/10/18 04:05 53 05/10/18 04:00 98.9 52 18 109/58 (75) 95 98.9 05/10/18 00:00 98.4 56 18 111/61 (78) 95 98.4 05/09/18 23:34 56 05/09/18 21:33 Room Air 05/09/18 20:00 97.2 59 18 120/72 (88) 99 97.2 05/09/18 19:06 55 05/09/18 18:06 98.5 58 18 150/63 100 Room Air 98.5 05/09/18 17:43 98.5 58 18 150/63 100 Room Air 98.5 05/09/18 16:14 98.5 05/09/18 15:52 98.7 56 19 142/60 100 Room Air 98.7 05/09/18 15:44 97.8 05/09/18 13:35 97.8 67 18 127/69 98 Room Air 97.8 05/09/18 13:35 98.2 61 18 127/69 98 Room Air 98.2 Intake and Output 05/09/18 05/10/18 19:00 07:00 Intake Total 240 ml Output Total 0 ml Balance 0 ml 240 ml Intake Oral 240 ml Output Urine Total 0 ml # Voids 4 Laboratory Tests 05/09/18 14:20: White Blood Count 5.4, Red Blood Count 4.51, Hemoglobin 13.7, Hematocrit 39.5, Mean Corpuscular Volume 88, Mean Corpuscular Hemoglobin 30.3, Mean Corpuscular Hemoglobin Concent 34.6, Red Cell Distribution Width 11.8, Platelet Count 234, Mean Platelet Volume 7.4, Neutrophils (%) (Auto) 57.0, Lymphocytes (%) (Auto) 31.2, Monocytes (%) (Auto) 7.9, Eosinophils (%) (Auto) 1.7, Basophils (%) (Auto ) 2.2H, Prothrombin Time 10.7, Prothromb Time International Ratio 1.0, Activated Partial Thromboplast Time 24, Sodium Level 139, Potassium Level 3.9, Chloride Level 102, Carbon Dioxide Level 33H, Anion Gap 5, Blood Urea Nitrogen 15, Creatinine 0.7, Estimat Glomerular Filtration Rate , Glucose Level 78, Calcium Level 9.6, Total Bilirubin 0.5, Aspartate Amino Transf (AST/SGOT) 21, Alanine Aminotransferase (ALT/SGPT) 13, Alkaline Phosphatase 72, Total Creatine Kinase 91, Creatine Kinase MB 0.5, Creatine Kinase MB Relative Index 0.5, Troponin I 0.000, Pro-B-Type Natriuretic Peptide 133H, Total Protein 8.5H, Albumin 3.5, Globulin 5.0, Albumin/Globulin Ratio 0.7L 05/09/18 14:30: Hemoglobin A1c 5.9, Thyroid Stimulating Hormone (TSH) 0.773 05/09/18 21:55: Troponin I 0.000, D-Dimer 1.35H 05/10/18 03:15: White Blood Count 4.8, Red Blood Count 4.75, Hemoglobin 13.5, Hematocrit 40.9, Mean Corpuscular Volume 86, Mean Corpuscular Hemoglobin 28.4, Mean Corpuscular Hemoglobin Concent 33.0, Red Cell Distribution Width 11.5L, Platelet Count 233, Mean Platelet Volume 7.1, Neutrophils (%) (Auto) 54.9, Lymphocytes (%) (Auto) 28.6, Monocytes (%) (Auto) 10.6H, Eosinophils (%) (Auto) 2.8, Basophils (%) ( Auto) 3.1H, Sodium Level 138, Potassium Level 3.1L, Chloride Level 103, Carbon Dioxide Level 32, Anion Gap 3L, Blood Urea Nitrogen 14, Creatinine 0.7, Estimat Glomerular Filtration Rate , Glucose Level 99, Calcium Level 9.4, Troponin I 0.000, Pro-B-Type Natriuretic Peptide 152H, Triglycerides Level 100, Cholesterol Level 181, LDL Cholesterol 106H, HDL Cholesterol 53, Cholesterol/ HDL Ratio 3.4 Height (Feet): 5 Height (Inches): 2.00 Weight (Pounds): 137 General Appearance: no apparent distress, thin EENT: PERRL/EOMI Neck: non-tender, supple Cardiovascular: normal peripheral pulses, normal rate, regular rhythm Respiratory/Chest: chest wall non-tender, lungs clear, decreased breath sounds Abdomen: normal bowel sounds, soft Genitourinary/Rectal: normal genital exam Edema: no edema noted Arm (L), no edema noted Arm (R) Edema: trace edema 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
--- NOTE | 2018-05-10 11:29 | Consultation ---
Consult Note Consult Note [id number] Job ID Thank you for consultation Alvin Lackey MD May 10, 2018 11:29
[2018-05-10 12:00] VITALS: BP 114/64
--- NOTE | 2018-05-10 13:14 | Cardiac Electrophysiology PN ---
Subjective Subjective Cardiology consult dictated [id number] Objective Last 24 Hour Vital Signs Date Time Temp Pulse Resp B/P (MAP) Pulse Ox O2 Delivery O2 Flow Rate FiO2 05/10/18 12:00 97.7 69 18 114/64 (81) 95 97.7 05/10/18 12:00 65 05/10/18 09:00 Room Air 05/10/18 08:00 97.5 63 18 100/55 (70) 97 97.5 05/10/18 08:00 58 05/10/18 04:05 53 05/10/18 04:00 98.9 52 18 109/58 (75) 95 98.9 05/10/18 00:00 98.4 56 18 111/61 (78) 95 98.4 05/09/18 23:34 56 05/09/18 21:33 Room Air 05/09/18 20:00 97.2 59 18 120/72 (88) 99 97.2 05/09/18 19:06 55 05/09/18 18:06 98.5 58 18 150/63 100 Room Air 98.5 05/09/18 17:43 98.5 58 18 150/63 100 Room Air 98.5 05/09/18 16:14 98.5 05/09/18 15:52 98.7 56 19 142/60 100 Room Air 98.7 05/09/18 15:44 97.8 05/09/18 13:35 97.8 67 18 127/69 98 Room Air 97.8 05/09/18 13:35 98.2 61 18 127/69 98 Room Air 98.2 Intake and Output 05/09/18 05/10/18 19:00 07:00 Intake Total 240 ml Output Total 0 ml Balance 0 ml 240 ml Intake Oral 240 ml Output Urine Total 0 ml # Voids 4 Laboratory Tests Test 05/09/18 14:20 05/09/18 14:30 05/09/18 21:55 05/10/18 03:15 White Blood Count 5.4 K/UL (4.8-10.8) 4.8 K/UL (4.8-10.8) Red Blood Count 4.51 M/UL (4.20-5.40) 4.75 M/UL (4.20-5.40) Hemoglobin 13.7 G/DL (12.0-16.0) 13.5 G/DL (12.0-16.0) Hematocrit 39.5 % (37.0-47.0) 40.9 % (37.0-47.0) Mean Corpuscular Volume 88 FL (80-99) 86 FL (80-99) Mean Corpuscular Hemoglobin 30.3 PG (27.0-31.0) 28.4 PG (27.0-31.0) Mean Corpuscular Hemoglobin Concent 34.6 G/DL (32.0-36.0) 33.0 G/DL (32.0-36.0) Red Cell Distribution Width 11.8 % (11.6-14.8) 11.5 % (11.6-14.8) L Platelet Count 234 K/UL (150-450) 233 K/UL (150-450) Mean Platelet Volume 7.4 FL (6.5-10.1) 7.1 FL (6.5-10.1) Neutrophils (%) (Auto) 57.0 % (45.0-75.0) 54.9 % (45.0-75.0) Lymphocytes (%) (Auto) 31.2 % (20.0-45.0) 28.6 % (20.0-45.0) Monocytes (%) (Auto) 7.9 % (1.0-10.0) 10.6 % (1.0-10.0) H Eosinophils (%) (Auto) 1.7 % (0.0-3.0) 2.8 % (0.0-3.0) Basophils (%) (Auto) 2.2 % (0.0-2.0) H 3.1 % (0.0-2.0) H Prothrombin Time 10.7 SEC (9.30-11.50) Prothromb Time International Ratio 1.0 (0.9-1.1) Activated Partial Thromboplast Time 24 SEC (23-33) Sodium Level 139 MMOL/L (136-145) 138 MMOL/L (136-145) Potassium Level 3.9 MMOL/L (3.5-5.1) 3.1 MMOL/L (3.5-5.1) L Chloride Level 102 MMOL/L (98-107) 103 MMOL/L (98-107) Carbon Dioxide Level 33 MMOL/L (21-32) H 32 MMOL/L (21-32) Anion Gap 5 mmol/L (5-15) 3 mmol/L (5-15) L Blood Urea Nitrogen 15 mg/dL (7-18) 14 mg/dL (7-18) Creatinine 0.7 MG/DL (0.55-1.30) 0.7 MG/DL (0.55-1.30) Estimat Glomerular Filtration Rate mL/min (>60) mL/min (>60) Glucose Level 78 MG/DL (74-106) 99 MG/DL (74-106) Calcium Level 9.6 MG/DL (8.5-10.1) 9.4 MG/DL (8.5-10.1) Total Bilirubin 0.5 MG/DL (0.2-1.0) Aspartate Amino Transf (AST/SGOT) 21 U/L (15-37) Alanine Aminotransferase (ALT/SGPT) 13 U/L (12-78) Alkaline Phosphatase 72 U/L (46-116) Total Creatine Kinase 91 U/L (26-308) Creatine Kinase MB 0.5 NG/ML (0.0-3.6) Creatine Kinase MB Relative Index 0.5 Troponin I 0.000 ng/mL (0.000-0.056) 0.000 ng/mL (0.000-0.056) 0.000 ng/mL (0.000-0.056) Pro-B-Type Natriuretic Peptide 133 pg/mL (0-125) H 152 pg/mL (0-125) H Total Protein 8.5 G/DL (6.4-8.2) H Albumin 3.5 G/DL (3.4-5.0) Globulin 5.0 g/dL Albumin/Globulin Ratio 0.7 (1.0-2.7) L Hemoglobin A1c 5.9 % (4.3-6.0) Thyroid Stimulating Hormone (TSH) 0.773 uiU/mL (0.358-3.740) D-Dimer 1.35 mg/L FEU (0.00-0.49) H Triglycerides Level 100 MG/DL (30-150) Cholesterol Level 181 MG/DL (< 200) LDL Cholesterol 106 mg/dL (<100) H HDL Cholesterol 53 MG/DL (40-60) Cholesterol/HDL Ratio 3.4 (3.3-4.4) Munir Murray MD May 10, 2018 13:14
[2018-05-10 16:00] VITALS: BP 112/60
[2018-05-10 20:00] VITALS: BP 127/77
[2018-05-10] MEDS: Atorvastatin 20mg tab ORAL SCH (21:05)
--- NOTE | 2018-05-10 21:15 | Consultation ---
DATE OF CONSULTATION: 05/10/2018 HEMATOLOGY/ONCOLOGY CONSULTATION CONSULTING PHYSICIAN: Alvin Lackey M.D. REQUESTING PHYSICIAN: Carmen Interiano M.D. and Dr. Newberry. REASON FOR CONSULTATION: Evaluation of lung cancer. IDENTIFYING DATA: Dear Dr. Newberry and Dr. Liu, The patient is a pleasant 82-year-old former smoker with history of non-small cell lung cancer, status post resection via thoracotomy in 2004 as well as chemotherapy with radiation at that time as well as hypertension, at this time presents with left posterior chest pain, 4/10 maximal capacity and intensity, afebrile, stable at this time. CTA completed. Negative PE. Pain is nonexertional. No shortness of breath noted. No cough, fever, chills, or night sweats. Worse with pressure and movement. No recent trauma. Denies any strenuous activity. . PAST MEDICAL HISTORY: Hypertension, non-small cell lung cancer, status post lobe resection 6 months ago with chemotherapy in 2004 was involved. PAST SURGICAL HISTORY: Thoracotomy. MEDICATIONS: Have been reviewed. ALLERGIES: Penicillin. SOCIAL HISTORY: Prior smoking, quit in 2004. No drug use. No alcohol use. FAMILY HISTORY: Noncontributory. REVIEW OF SYSTEMS: CONSTITUTIONAL: No fevers, chills or night sweats. SKIN: No rashes, bumps, or itching. HEENT: No headache, hearing or visual changes. BREASTS: No lumps, pain, or discharge. PULMONARY: No cough, sputum, or shortness of breath. GASTROINTESTINAL: No nausea, vomiting, or diarrhea. GENITOURINARY: No dysuria, frequency, or urgency. MUSCULOSKELETAL: No joint swelling, muscle pain, or trauma. PHYSICAL EXAMINATION: GENERAL: No acute distress. VITAL SIGNS: Reviewed. Temperature 98 degrees Fahrenheit, pulse of 65, blood pressure 125/65, respiratory rate of 12, O2 saturation 98% on room air. PULMONARY: Decreased breath sounds. CARDIOVASCULAR: Regular rate. No S3 or S4. ABDOMEN: Soft, nontender, and nondistended. EXTREMITIES: No cyanosis, swelling, or edema noted. LABORATORY AND DIAGNOSTIC DATA: WBC 5.4, hemoglobin 13.7, hematocrit 45, and platelet count 134,000. INR of 1. BUN of 15 and creatinine 0.7. Imaging, CTA of the chest shows right-sided upper lobe mass, 2.7 x 2.5 x 2.1 cm peripheral mass, also prominent lymph nodes in the right pulmonary hilum. Also CT scan of the left lower lobe scarring potentially 1.1 x 1.3 x 0.6 cm. ASSESSMENT AND RECOMMENDATIONS: 1. History of lung cancer, status post thoracotomy as well as chemotherapy and radiation. At this time, obtain CT-guided biopsy potentially, however, first discussed this with PCP as well as discussed with Dr. Liu, pulmonary team. We will need to weigh the risks and benefits of this procedure, may need again further evaluation, may need outpatient PET scan. 2. Anemia due to underlying chronic disease. Continue to closely monitor. 3. Hypertension, systolic pressure goal is 140. 4. Chest pain, potentially related to underlying masses. 5. Former smoker. Recommend cessation. I appreciate the consultation. Alvin Lackey M.D. DR: ESMER JOB#: [id number] CC:
--- NOTE | 2018-05-10 21:30 | Consultation ---
DATE OF CONSULTATION: 05/10/2018 CARDIOLOGY CONSULTATION CONSULTING PHYSICIAN: Munir Murray M.D. REFERRING PHYSICIAN: Richy Liu M.D. ADDITIONAL REFERRING PHYSICIAN: Carmen Interiano M.D. REASON FOR CONSULTATION: Chest pain and bradycardia. HISTORY OF PRESENT ILLNESS: The patient is an 82-year-old lady with history lung cancer, status post resection via thoracotomy in 2004. The patient also has history of hypertension, but without any coronary artery disease. The patient presented with 1-day of left-sided posterior chest pain, which is sharp and worse with activity, and was 4 on a scale of 1 to 10. The patient did not have any radiation and does not have any syncope or presyncopal symptoms. The patient underwent a CT angiogram to rule out PE, which was negative. The patient had a negative stress echo about a year ago per patient. On EKG, the patient was bradycardic with first-degree AV block, heart rate dropping to 51. REVIEW OF SYSTEMS: Negative other than what was mentioned in the history of present illness. PAST MEDICAL HISTORY: As mentioned above. FAMILY HISTORY: Noncontributory. ALLERGIES: She is allergic to penicillin. SOCIAL HISTORY: Does not use drug or use alcohol. She quit smoking in 2004. PHYSICAL EXAMINATION: VITAL SIGNS: Blood pressure of 116/64, pulse 69, respirations 18, and temperature 97.7 degrees. HEAD AND NECK: No JVD. LUNGS: Clear. CARDIOVASCULAR: Regular S1 and S2 with no gallop or murmur. ABDOMEN: Soft. EXTREMITIES: No pitting edema. LABORATORY AND DIAGNOSTIC DATA: Labs show white count of 4.8, hemoglobin 13, hematocrit of 41 and platelet count 233. Sodium 138, potassium 3.1, BUN of 14 and creatinine 0.7. Troponins are negative x2. ASSESSMENT AND PLAN: 1. Atypical chest pain. The patient was ruled out for myocardial infarction. Consider cardiac enzymes. Chest CT showed no evidence of pulmonary embolus or any acute thoracic vascular pathology. We will get an echocardiogram to evaluate for ejection fraction and wall motion abnormality. 2. Hypertension. Keep blood pressure stable, off antihypertensives. 3. Hyperlipidemia, on Lipitor. 4. History of lung cancer, status post resection. Further evaluation by Dr. Liu and Dr. Lackey. 5. Former smoker. Thank you very much, Dr. Interiano and Dr. Liu, for allowing me to participate in the care of this patient. Please do not hesitate to contact for any questions regarding my evaluation. Munri Murray M.D. DR: VAIBHAV JOB#: [id number] CC:
[2018-05-11] VITALS: BP 131/73
[2018-05-11 04:00] VITALS: BP 121/65
[2018-05-11 08:00] VITALS: BP 137/74
[2018-05-11] MEDS: Heparin 5000 units/ml inj SUBQ SCH (09:00)
--- NOTE | 2018-05-11 09:23 | Pulmonology Progress Note ---
Assessment/Plan Assessment/Plan ASSESSMENT: The patient is an 82-year-old female, former smoker with a history of lung cancer, status post lobe resection in 2004 and 6 months of chemotherapy, hypertension, presenting with atypical chest pain consistent with likely musculoskeletal origin or spasm. She has been ruled out for PE and ACS. CT of the chest was negative for PE but demonstrated a 2.7 cm RUL mass like opacity and a smaller RLL opacity, possible scarring. PROBLEM LIST: 1. Atypical chest pain status post R/O ACS and PE 2. History of lung cancer, presumably NSCLC S/P resection via thoracotomy, lobe unknown, and 6 months of chemotherapy in 2004, previously presumed to be in clinical remission but now with concern for recurrece 3. RUL 2.7 cm peripheral mass like opacity, smaller RLL opacity possible scar 4. Emphysematous changes on CT, likely underlying COPD 5. Hypertension. 6. Former smoker. TREATMENT PLAN: 1. CTGBx RUL mass like opacity 2. If transferred to OSH Bx can be done there, WILL NEED TO BE SEEN BY PULM & ONC @ OSH 3. PRN HHN's 4. F/U onc recs 5. F/U cards recs 6. DVT prophylaxis with heparin subcutaneous. 7. Continue to encourage abstinence from tobacco use. Subjective Allergies: Coded Allergies: PENICILLINS (Verified Allergy, Unknown, 05/09/18) Subjective Tm 100.9 VSS No SOB, no CP, no N, no V, no SOB + back pain CT reviewed Objective Last 24 Hour Vital Signs Date Time Temp Pulse Resp B/P (MAP) Pulse Ox O2 Delivery O2 Flow Rate FiO2 05/11/18 08:00 98.2 64 18 137/74 (95) 98 98.2 05/11/18 04:00 97.7 57 20 121/65 (83) 94 97.7 05/11/18 03:54 60 05/11/18 00:00 100.9 70 20 131/73 (92) 94 100.9 05/10/18 23:58 99.4 05/10/18 23:43 57 05/10/18 23:28 100.9 05/10/18 21:00 Room Air 05/10/18 20:00 98.8 65 20 127/77 (94) 96 98.8 05/10/18 19:03 70 05/10/18 16:00 61 05/10/18 16:00 97.7 63 18 112/60 (77) 97 97.7 05/10/18 12:00 97.7 69 18 114/64 (81) 95 97.7 05/10/18 12:00 65 Intake and Output 05/10/18 05/11/18 19:00 07:00 Intake Total 360 ml 240 ml Balance 360 ml 240 ml Intake Oral 360 ml 240 ml # Voids 5 1 General Appearance: WD/WN, no acute distress HEENT: normocephalic, atraumatic, anicteric, mucous membranes moist Respiratory/Chest: chest wall non-tender, lungs clear, normal breath sounds, no respiratory distress, no accessory muscle use Cardiovascular: normal peripheral pulses, normal rate, regular rhythm Abdomen: normal bowel sounds, soft, non tender, no organomegaly, non distended , no mass Extremities: no cyanosis, no clubbing, no edema Current Medications Medications (Trade) Dose Ordered Sig/Jayde Route PRN Reason Start Time Stop Time Status Last Admin Dose Admin Acetaminophen (Tylenol) 650 mg Q4H PRN ORAL Mild Pain/Temp > 100.5 05/09/18 18:45 06/08/18 18:44 05/10/18 23:28 Acetaminophen/ Hydrocodone Bitart ([employer] Mdl 5/325) 1 tab Q4H PRN ORAL Moderate Pain (Pain Scale 4-6) 05/09/18 18:45 05/16/18 18:44 05/09/18 22:03 Aspirin (ASA) 81 mg DAILY ORAL 05/10/18 09:00 06/09/18 08:59 05/10/18 09:08 Atorvastatin Calcium (Lipitor) 20 mg BEDTIME ORAL 05/09/18 21:00 06/08/18 20:59 05/10/18 21:05 Diphenhydramine HCl (Benadryl) 25 mg Q4H PRN ORAL Itching 05/09/18 18:45 06/08/18 18:44 Heparin Sodium (Porcine) (Heparin 5000 units/ml) 5,000 units EVERY 12 HOURS SUBQ 05/09/18 21:00 06/08/18 20:59 05/10/18 21:05 Ibuprofen (Advil) 400 mg Q6H PRN ORAL For Pain 05/09/18 18:45 06/08/18 18:44 Iopamidol (Isovue-370 150ml) 150 ml NOW PRN INJ Radiology Procedure 05/09/18 14:30 05/11/18 14:20 Morphine Sulfate (Morphine Sulfate) 1 mg Q4H PRN IVP For Pain 05/09/18 18:45 05/16/18 18:44 Nitroglycerin (Ntg) 0.4 mg Q5M PRN SL Prn Chest Pain 05/09/18 18:45 06/08/18 18:44 Ondansetron HCl (Zofran) 4 mg Q4H PRN IVP Nausea & Vomiting 05/09/18 18:45 06/08/18 18:44 05/10/18 08:05 Polyethylene Glycol (Miralax) 17 gm DAILYPRN PRN ORAL Constipation 05/10/18 09:15 06/09/18 09:14 05/10/18 10:15 Richy Liu MD May 11, 2018 09:23
[2018-05-11] MEDS: Aspirin Baby 81mg ORAL SCH (09:28)
[2018-05-11] MEDS: Norco 5mg/325mg tab ORAL PRN (09:29)
[2018-05-11] MEDS: Miralax 17gm pkt ORAL PRN (09:29)
[2018-05-11] MEDS ORDERED: Lidocaine 1% Plain 30 ml INJ PRN (09:30)
[2018-05-11] MEDS ORDERED: Albuterol/Ipratropium 3ml neb HHN PRN (10:00)
--- NOTE | 2018-05-11 14:48 | Cardiology Report ---
APPROVED REPORT EKG Measurement Heart [id number] Sinus bradycardia Minimal voltage criteria for LVH, may be normal variant Inferior infarct, age undetermined Abnormal ECG
--- NOTE | 2018-05-11 14:50 | General Progress Note ---
Assessment/Plan Assessment/Plan ASSESSMENT AND RECOMMENDATIONS: 1. History of lung cancer, status post thoracotomy as well as chemotherapy and radiation. Has recurrent lung mass. At this time, obtain CT-guided biopsy potentially, however, first discussed this with PCP as well as discussed with Dr. Liu, pulmonary team. We will need to weigh the risks and benefits of this procedure, may need again further evaluation --> may need outpatient PET scan. --> will need outpatient ct guided bx 2. Anemia due to underlying chronic disease. Continue to closely monitor. --> currently improved 3. Hypertension, systolic pressure goal is 140. 4. Chest pain, potentially related to underlying masses. 5. Former smoker. Recommend cessation. Stable for dc Subjective Constitutional: Denies: no symptoms, chills, diaphoresis, fever, malaise, weakness, other HEENT: Denies: no symptoms, eye pain, blurred vision, tearing, double vision, ear pain, ear discharge, nose pain, nose congestion, throat pain, throat swelling, mouth pain, mouth swelling, other Cardiovascular: Denies: no symptoms, chest pain, edema, irregular heart rate, lightheadedness, palpitations, syncope, other Respiratory: Denies: no symptoms, cough, orthopnea, shortness of breath, SOB with excertion, SOB at rest, sputum, stridor, wheezing, other Gastrointestinal/Abdominal: Denies: no symptoms, abdomen distended, abdominal pain, black stools, tarry stools, blood in stool, constipated, diarrhea, difficulty swallowing, nausea, poor appetite, poor fluid intake, rectal bleeding , vomiting, other Genitourinary: Denies: no symptoms, burning, discharge, frequency, flank pain, hematuria, incontinence, pain, urgency, other Neurologic/Psychiatric: Denies: no symptoms, anxiety, depressed, emotional problems, headache, numbness, paresthesia, pre-existing deficit, seizure, tingling, tremors, weakness, other Endocrine: Denies: no symptoms, excessive sweating, flushing, intolerance to cold, intolerance to heat, increased hunger, increased thirst, increased urine, unexplained weight gain, unexplained weight loss, other Hematologic/Lymphatic: Denies: no symptoms, anemia, easy bleeding, easy bruising, other Allergies: Coded Allergies: PENICILLINS (Verified Allergy, Unknown, 05/09/18) Subjective no events overnight, no f/c, no ns Objective Last 24 Hour Vital Signs Date Time Temp Pulse Resp B/P (MAP) Pulse Ox O2 Delivery O2 Flow Rate FiO2 05/11/18 09:00 Room Air 05/11/18 08:10 58 05/11/18 08:00 98.2 64 18 137/74 (95) 98 98.2 05/11/18 04:00 97.7 57 20 121/65 (83) 94 97.7 05/11/18 03:54 60 05/11/18 00:00 100.9 70 20 131/73 (92) 94 100.9 05/10/18 23:58 99.4 05/10/18 23:43 57 05/10/18 23:28 100.9 05/10/18 21:00 Room Air 05/10/18 20:00 98.8 65 20 127/77 (94) 96 98.8 05/10/18 19:03 70 05/10/18 16:00 61 05/10/18 16:00 97.7 63 18 112/60 (77) 97 97.7 Intake and Output 05/10/18 05/11/18 19:00 07:00 Intake Total 360 ml 240 ml Balance 360 ml 240 ml Intake Oral 360 ml 240 ml # Voids 5 1 Height (Feet): 5 Height (Inches): 2.00 Weight (Pounds): 137 General Appearance: no apparent distress EENT: normal ENT inspection Neck: normal alignment Cardiovascular: regular rhythm Respiratory/Chest: lungs clear Abdomen: non tender Genitourinary/Rectal: heme negative stool Extremities: normal inspection Edema: 1+ Leg (L), 1+ Leg (R) Edema: mild edema Neurologic: alert Alvin Lackey MD May 11, 2018 14:50
--- NOTE | 2018-05-11 19:51 | Consultation ---
History of Present Illness General Date patient seen: May 11, 2018 Chief Complaint: Pain Present Illness HPI 82 yo woman presented to ED with increased chest pain. She reports increased left-sided pain, the pt has anxiety and is forgetful. no si/hi. the pt has low energy. Allergies: Coded Allergies: PENICILLINS (Verified Allergy, Unknown, 05/09/18) Medication History Scheduled Amlodipine Besylate* (Amlodipine Besylate*), 5 MG ORAL DAILY, (Reported) Gabapentin* (Gabapentin*), 100 MG ORAL THREE TIMES A DAY, (Reported) Hydrochlorothiazide* (Hydrochlorothiazide*), 25 MG ORAL DAILY, (Reported) Metoprolol Succinate* (Metoprolol Succinate*), 100 MG ORAL DAILY, (Reported) Omeprazole (Omeprazole), 20 MG ORAL DAILY, (Reported) Pyridoxine Hcl (Pyridoxine Hcl), 100 MG PO DAILY, (Reported) Scheduled PRN Meclizine Hcl* (Meclizine*), 25 MG ORAL THREE TIMES A DAY PRN for for dizziness, (Reported) Naproxen* (Naproxen*), 500 MG ORAL TWICE A WEEK PRN for For Pain, (Reported) Ranitidine Hcl* (Zantac*), 150 MG ORAL TWICE A DAY PRN for GAS, (Reported) Discontinued Medications Potassium Chloride (Klor-Con M20), 20 MEQ ORAL DAILY, (Reported) Discontinued Reason: Therapy completed Patient History Limited by: medical condition History Provided By: Patient, Medical Record, PMD Healthcare decision maker Resuscitation status Full Code Advanced Directive on File No Past Medical/Surgical History Past Medical/Surgical History: (1) Body aches Review of Systems Psychiatric: Reports: anxiety, depressed feelings, emotional problems Physical Exam General Appearance: no apparent distress, alert Neurologic: oriented x 3, responsive, depressed affect Last 24 Hour Vital Signs Date Time Temp Pulse Resp B/P (MAP) Pulse Ox O2 Delivery O2 Flow Rate FiO2 05/11/18 09:00 Room Air 05/11/18 08:10 58 05/11/18 08:00 98.2 64 18 137/74 (95) 98 98.2 05/11/18 04:00 97.7 57 20 121/65 (83) 94 97.7 05/11/18 03:54 60 05/11/18 00:00 100.9 70 20 131/73 (92) 94 100.9 9/10/18 23:58 99.4 05/10/18 23:43 57 05/10/18 23:28 100.9 05/10/18 21:00 Room Air 05/10/18 20:00 98.8 65 20 127/77 (94) 96 98.8 Intake and Output 05/10/18 05/11/18 19:00 07:00 Intake Total 360 ml 240 ml Balance 360 ml 240 ml Intake Oral 360 ml 240 ml # Voids 5 1 Height (Feet): 5 Height (Inches): 2.00 Weight (Pounds): 137 Assessment/Plan Assessment/Plan Anxiety d/o cognitive impairment ativan prn provided ro/Ezequiel Morales MD May 11, 2018 19:51
--- NOTE | 2018-05-11 21:26 | Cardiology Report ---
APPROVED REPORT EKG Measurement Heart [id number] VA [id number] [id number] Sinus bradycardia Otherwise normal ECG
--- NOTE | 2018-05-11 21:30 | Cardiology Report ---
APPROVED REPORT EKG Measurement Heart [id number] [place] 198P49 [id number] Sinus bradycardia Otherwise normal ECG
--- NOTE | 2018-05-13 10:14 | Discharge Summary ---
Discharge Summary Discharge Summary _ DATE OF ADMISSION: 05/09/2018 DATE OF DISCHARGE: [] 05/11/2018 REASON FOR ADMISSION: 82 years old female with past medical history of hypertension, lactic lung cancer, status post surgery and chemotherapy, former smoker, presented to emergency department with complaint of chest pain. Patient reported left-sided chest pain over the last day worse with deep breathing. The pain was constant and worse with deep breathing and movement. No recent trauma. No fever. No productive cough. No current history of smoking. Vital signs were stable. No leukocytosis stable hemoglobin and hematocrit. D-dimer elevated 1.35. Troponin negative. EKG revealed no acute ischemic changes. ProBNP 133. CTA of the chest revealed no evidence of acute pulmonary emboli or other acute thoracic vascular pathology. It showed 2.7 cm peripheral right upper lobe mass , concerning for neoplasm. 1.1 opacity in the left lower lobe probably an area of scaring Atmos was not completely excludable. 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 Fairly extensive scaring evidence of COPD changes Patient admitted with diagnosis off on chest pain hypertension lung cancer rule out recurrence CONSULTANTS: graduate studies dean Dr. Murray pulmonary Dr. Liu voip technician/oncologist Dr. Lackey psychiatrist [facility] COURSE: Patient admitted to telemetry floor. A And P Mechanic closely followed. Serial troponin were negative. EKG revealed no acute ischemic changes. Patient was ruled out for acute NM. According to graduate studies dean , chest pain was atypical possibly due to probable recurrence of lung CA. Patient was on antiplatelet therapy with aspirin, statin and nitroglycerin provided as needed. Lipid panel revealed elevated LDL 106. Patient was counseled on low-fat low-cholesterol diet. TSH was within normal limits. Echocardiogram revealed preserved ejection fraction of 65%, no evidence of wall motion abnormality, right ventricular systolic pressure of 27. Blood pressure was closely monitored. Patient was not on antihypertensive medications at this time. Blood pressure remained stable. Platform Material Handling Supervisor and oncologist were consulted due to suspicion for recurrence of malignancy. Supplemental oxygen and pulmonary toilet provided as needed. Pulse oximetry was stable on room air. Platform Material Handling Supervisor recommended CT-guided biopsy right upper lobe to rule out malignancy. He stated that biopsy can be done as outpatient with close follow-up with video production specialist and oncologist. DVT prophylaxis provided. Oncologist agreed with CT-guided biopsy , and also recommended outpatient PET scan. Patient was counseled to continue abstinence from smoking. Psychiatrist diagnosed patient with anxiety disorder . Psychiatrist provided reality orientation and supportive therapy. Pain management was addressed as needed. Patient was strongly encouraged to follow up with primary care provider next week with referral to video production specialist and oncologist and need for CT-guided biopsy right upper lobe and probable PET scan. FINAL DIAGNOSES: Atypical chest pain History of lung cancer, presumptively NSCLC ( status post resection via thoracotomy, lobe unknown, and 6 months of chemotherapy; previously presumed to be in clinical remission, currently concern for recurrence) Possible malignancy with right upper lobe 2.7 cm peripheral masslike opacity, small right lower lobe opacity possible scar Probably COPD (as evident by emphysematous changes on CT scan) Hyperlipidemia Hypertension Former smoker Anxiety disorder DISCHARGE MEDICATIONS: List of medication was sent this patient DISCHARGE INSTRUCTIONS: Patient was discharged home. Follow up with primary care provider in one week. Patient need outpatient PET scan and CT guided biopsy for right upper lobe mass. Outpatient follow-up with video production specialist and oncologist. I have been assigned to dictate discharge summary for this account. I was not involved in the patient's management. Chuyita Rodrigues NP May 13, 2018 10:14
== END 2018-05-11 12:55 | disposition home or self-care (01) | DRG 313 ==
LOC: EMR 14:10 → 2E 16:00 → EDBEDREQ 16:19
DX: R07.89 Other chest pain (principal); J96.01 Acute respiratory failure with hypoxia; I13.0 Hypertensive heart and chronic kidney disease with heart failure and stage 1 through stage 4 chronic kidney disease, or unspecified chronic kidney disease; R91.8 Other nonspecific abnormal finding of lung field; Z85.118 Personal history of other malignant neoplasm of bronchus and lung; Z87.891 Personal history of nicotine dependence; Z90.2 Acquired absence of lung [part of]; Z88.0 Allergy status to penicillin; Z92.3 Personal history of irradiation; D63.8 Anemia in other chronic diseases classified elsewhere; R00.1 Bradycardia, unspecified; I44.0 Atrioventricular block, first degree; J44.9 Chronic obstructive pulmonary disease, unspecified; I50.9 Heart failure, unspecified; I48.2 Chronic atrial fibrillation; F03.90 Unspecified dementia, unspecified severity, without behavioral disturbance, psychotic disturbance, mood disturbance, and anxiety; Z86.73 Personal history of transient ischemic attack (TIA), and cerebral infarction without residual deficits; N18.9 Chronic kidney disease, unspecified; F41.9 Anxiety disorder, unspecified
CPT/HCPCS: 36415; 71275; 80048; 80053; 80061; 82550; 82553; 83036; 83880; 84443; 84484; 85025; 85379; 85610; 85730; 93005; 93306; 96365; 99285; J2405; J8499